=== PATIENT | female | born 1965 | race Hispanic/Latino ===

== ENCOUNTER 2022-11-13 11:31 | Observation (INO) | payer BC ==
[~2022-11-13] VITALS: Ht 162.6 cm; Wt 67.4 kg
[~2022-11-13 11:31] MED LIST: BUPIVACAINE HCL 0.5% INJ 30 ML VIAL INJ ONE; CEFAZOLIN SODIUM 4 GM ONE; FISH OIL 1,0001 EACH PO; LACTATED RINGER'S 1,000 ML ONE; MULTIPLE VITAM1 EAC1 PO; SUCRALFATE1 GM PO
[2022-11-13] MEDS ORDERED: DEXAMETHASONE SOD PHOS INJ 4 MG/ML SDV ONE (12:57)
[2022-11-13] MEDS ORDERED: ONDANSETRON HCL INJ 2MG/ML 2ML 2 MG/ML VIAL ONE (12:57)
[2022-11-13] MEDS ORDERED: LIDOCAINE HCL 2% LOCAL INJ 5 ML SDV VIAL INJ ONE (12:57)
[2022-11-13] MEDS ORDERED: POVIDONE IODINE 0.05% 0.05 % ML PO ONE (12:57)
[2022-11-13] MEDS ORDERED: SEVOFLURANE INHAL SOLN 250 ML PEN BTL ONE (12:57)
[2022-11-13] MEDS ORDERED: ROCURONIUM BROMIDE 10 MG/ML 5ML VIAL IV ONE (12:57)
[2022-11-13] MEDS ORDERED: KETOROLAC TROMETHAMINE 30 MG/ML VIAL ONE (12:57)
[2022-11-13] MEDS ORDERED: PROPOFOL IV EMULSION 10 MG/ML 20 ML VIAL ONE (12:57)
[2022-11-13] MEDS ORDERED: ACETAMINOPHEN 1000 MG/100 ML 100 ML IV ONE (13:05)
[2022-11-13] MEDS ORDERED: SUGAMMADEX SODIUM 200 MG/2 ML VIAL IV ONE (13:05)
[2022-11-13] MEDS ORDERED: FENTANYL CITRATE/PF 100MCG/2 ML INJ ONE (13:28)
[2022-11-13] MEDS ORDERED: MIDAZOLAM HCL 2 MG/2 ML VIAL ONE (13:28)
[2022-11-13] MEDS ORDERED: ACETAMINOPHEN 325 MG TAB PO PRN (13:45)
[2022-11-13] MEDS ORDERED: HYDROCODONE/APAP 5MG-325MG TAB PO PRN (13:45)
[2022-11-13] MEDS: FENTANYL CITRATE/PF 100MCG/2 ML INJ ONE ×2 (13:57→14:17)
[2022-11-13 14:48] VITALS: BP 139/75
[2022-11-13] MEDS: Morphine 4mg INJECTION 4 MG/ML INJ IV PRN ×2 (15:00→19:05)
[2022-11-13] MEDS: ONDANSETRON HCL INJ 2MG/ML 2ML 2 MG/ML VIAL IV PRN ×2 (15:00→19:05)
[2022-11-13] MEDS: SODIUM CHLORIDE 0.9% 1000ML 1,000 ML IV SCH ×2 (15:29→23:54)
[2022-11-13 17:39] VITALS: BP 139/75
[2022-11-13 18:26] VITALS: BP 139/75
[2022-11-13 20:00] VITALS: BP 128/73
[2022-11-13 21:00] VITALS: BP 128/73
[2022-11-13] MEDS: KETOROLAC TROMETHAMINE 30 MG/ML VIAL IV PRN (23:53)
[2022-11-14 00:30] VITALS: BP 111/67
[2022-11-14 05:00] VITALS: BP 114/67
[2022-11-14] MEDS ORDERED: ULTRAM 50MG50 MG PO (06:37)
[2022-11-14] MEDS: ONDANSETRON HCL INJ 2MG/ML 2ML 2 MG/ML VIAL IV PRN (07:22)
[2022-11-14] MEDS: KETOROLAC TROMETHAMINE 30 MG/ML VIAL IV PRN (07:23)
[2022-11-14 08:30] VITALS: BP 113/68
[2022-11-14 09:15] VITALS: BP 113/68
== END 2022-11-14 10:45 | disposition home or self-care (01) ==
LOC: OR 11:31 → PACU V 12:41 → MED/SURG2 14:54
PROVIDERS: ADMIT Surgery; ATTEND Surgery
DX: K80.10 Calculus of gallbladder with chronic cholecystitis without obstruction (principal); K21.9 Gastro-esophageal reflux disease without esophagitis; K44.9 Diaphragmatic hernia without obstruction or gangrene; Z01.818 Encounter for other preprocedural examination; Z20.822 Contact with and (suspected) exposure to COVID-19
CPT/HCPCS: 0223U; 36415; 88304; G0378; J0690; J1100; J1885; J2001; J2250; J2270; J2405; J7030

== ENCOUNTER → 2022-12-06 | Outpatient (CLI) | payer BC ==
[~2022-12-06] MED LIST changes: -BUPIVACAINE HCL 0.5% INJ 30 ML VIAL INJ ONE; -CEFAZOLIN SODIUM 4 GM ONE; -LACTATED RINGER'S 1,000 ML ONE; +ULTRAM 50MG50 MG PO
== END ==
LOC: DX 08:46
PROVIDERS: ATTEND Surgery
DX: R10.13 Epigastric pain (principal)
CPT/HCPCS: 74240